=== PATIENT | male | born 1990 | race Two or more races ===

== ENCOUNTER 2019-04-28 23:29 | Emergency (ER) | payer SELFPAY ==
[~2019-04-28] VITALS: Ht 175.3 cm; Wt 90.7 kg
[2019-04-28 23:40] VITALS: BP 150/78
== END 2019-04-28 23:55 | disposition left against medical advice (07) ==
LOC: EDBD 23:29 → ER 23:42
DX: F10.920 Alcohol use, unspecified with intoxication, uncomplicated (principal); Y90.9 Presence of alcohol in blood, level not specified; Z53.21 Procedure and treatment not carried out due to patient leaving prior to being seen by health care provider